=== PATIENT | female | born 1945 | race Caucasian/White ===

== ENCOUNTER 2019-12-26 16:39 | Outpatient (CLI) | payer MEDICARE, SELFPAY ==
[2019-12-26 17:29] LABS: Basophils Percent Auto 0.2 % (0.2-1.2); Eosinophils Absolute Auto 0.1 K/mm3 (0-0.3); Eosinophils Percent Auto 1.1 % (0-4.4); Hematocrit 34.3 % (37.0-47.0); Hemoglobin 10.6 g/dL (12.0-15.0); Immature Granulocyte Absolute 0.01 K/mm3 (0.00-0.031); Immature Granulocyte Percent A 0.2 % (0-0.5); Lymphocytes Absolute Auto 2.07 K/mm3 (0.9-3.2); Lymphocytes Percent Auto 33.4 % (18.3-44.2); Mean Corpuscular HGB Conc 30.9 g/dl (32-36); Mean Corpuscular Hemoglobin 30.6 pg (26-34); Mean Corpuscular Volume 99.1 fl (80-100); Mean Platelet Volume 10.4 fl (7.4-10.4); Monocytes Absolute Auto 0.5 K/mm3 (0.1-0.6); Monocytes Percent Auto 7.3 % (2.6-8.5); Neutrophils Absolute Auto 3.6 K/mm3 (1.3-6.7); Neutrophils Percent Auto 57.8 % (45.5-73.1); Platelet Count Result 326 k/mm3 (150-375); Red Blood Count 3.46 M/mm3 (4.2-5.4); Red Cell Distribution Width 13.5 % (11.5-14.5); White Blood Count 6.2 K/mm3 (4.5-10.0)
[2019-12-26 18:17] LABS: Alanine Aminotransferase 14 U/L (4-35); Albumin Level 3.9 g/dL (3.5-5.1); Alkaline Phosphatase 111 U/L (38-126); Aspartate Amino Transferase 22 U/L (14-36); Bilirubin,Total 0.3 mg/dL (0.2-1.3); Blood Urea Nitrogen 33 mg/dL (7-17); Calcium 9.3 mg/dL (8.4-10.2); Carbon Dioxide 22 mmol/L (22-30); Chloride 105 mmol/L (98-107); Estimated Glomerular Filt Rate 28; Glucose 95 mg/dL (65-105); Iron 57 ug/dL (37-170); Potassium 5.2 mmol/L (3.4-5.0); Sodium 139 mmol/L (137-145)
[2019-12-26 18:26] LABS: Percent Iron Saturation 20 % (20-50)
== END 2019-12-26 16:40 | disposition home or self-care (01) ==
LOC: ANHLAB 16:41
PROVIDERS: PCP Internal Medicine; Visit Provider Internal Medicine
DX: D64.9 Anemia, unspecified (principal); D50.9 Iron deficiency anemia, unspecified; I10 Essential (primary) hypertension; E43 Unspecified severe protein-calorie malnutrition
CPT/HCPCS: 36415; 80053; 82728; 83540; 83550; 85025

== ENCOUNTER 2019-12-27 19:26 | Emergency (ER) | payer MEDICARE, SELFPAY ==
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
[2019-12-27 19:47] VITALS: BP 165/62; PULSE 64; RESP 20; TEMP 37.2; O2SAT 100
== END 2019-12-27 20:01 | disposition home or self-care (01) ==
PROVIDERS: Emergency Provider Nurse Practitioner Family
DX: S61.412A Laceration without foreign body of left hand, initial encounter (principal); W55.03XA Scratched by cat, initial encounter; Z86.718 Personal history of other venous thrombosis and embolism; I10 Essential (primary) hypertension; K21.9 Gastro-esophageal reflux disease without esophagitis
CPT/HCPCS: 99213; G0463

== ENCOUNTER 2020-01-04 15:24 | Outpatient (CLI) | payer MEDICARE, SELFPAY ==
--- NOTE | ~2020-01-04 | US_ITS ---
EXAMINATION: US venous doppler LE EXAM DATE: 01/04/2020 16:05 INDICATION: DVT follow-up. TECHNIQUE: Multiple grayscale, color flow and Doppler images of the lower extremity deep venous syste ms bilaterally were obtained and reviewed. Comparison is made to prior examination from 07/03/2019. FINDINGS: RIGHT SIDE Common femoral: -------- Normal. Profunda femoral: ------- Normal. Femoral: Normal. Popliteal: Normal. Posterior tibial: --------- Normal. Peroneal: Normal. Gastrocnemius: Not visualized. Soleus: Not visualized. Greater saphenous: ----- Normal. Lesser saphenous: ------ Not visualized. Interval reconstitution of previously seen right common femoral, femoral, popliteal DVT. LEFT SIDE Common femoral: -------- Normal. Profunda femoral: ------- Normal. Femoral: Persistent thrombus. Popliteal: Persistent thrombus. Posterior tibial: --------- Normal. Peroneal: Normal. Gastrocnemius: Not visualized. Soleus: Not visualized. Greater saphenous: ----- Normal. Lesser saphenous: ------ Not visualized. Interval reconstitution of left common femoral DVT. IMPRESSION: 1. Positive for persistent left femoral, popliteal DVT. 2. Resolution of previously seen right DVT. Reviewed, dictated and finalized at location B. 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
== END 2020-01-04 15:25 | disposition home or self-care (01) ==
PROVIDERS: PCP Internal Medicine; Visit Provider Internal Medicine
DX: I82.409 Acute embolism and thrombosis of unspecified deep veins of unspecified lower extremity (principal)
CPT/HCPCS: 93970

== ENCOUNTER 2020-04-26 10:05 | Outpatient (CLI) | payer MEDICARE, SELFPAY ==
--- NOTE | ~2020-04-26 | CT_ITS ---
EXAMINATION: CT chest wo con DATE: 04/26/2020 09:58 INDICATION: Lung nodule follow-up TECHNIQUE: Computed tomography (CT) of the chest was performed without intravenous contrast. The dose -length product was 234.01 mGy-cm. Automated exposure control and iterative reconstruction technique were employed. COMPARISON: CT dated 11/13/2018 FINDINGS: No thoracic lymphadenopathy. Heart size normal. There are surgical changes consistent with hiatal hernia repair. There is atherosclerosis. No significant pleural or pericardial effusion. There are cholecystectomy clips. Previously identified right middle lobe nodule not visualized on the current examination. There is lo wer lobe atelectasis. No suspicious pulmonary nodules or masses. Mild thoracic spondylosis. Accentuat ed thoracic kyphosis. IMPRESSION: 1. Interval resolution of right middle lobe nodule compared with prior study. Bibasilar atelectasis. Reviewed, dictated and finalized at location A. IMPRESSION: 1. Interval resolution of right middle lobe nodule compared with prior study. B ibasilar atelectasis.
--- NOTE | ~2020-04-26 | US_ITS ---
EXAMINATION:US venous doppler LE LT INDICATION:Chronic deep venous thrombosis TECHNIQUE: Multiple grayscale, color flow and Doppler images of the right lower extremity deep venous systems were obtained and reviewed. COMPARISON: Comparison to multiple prior studies sequentially, with oldest reviewed study dated 11/18. FINDINGS: There is deep venous thrombosis of the distal aspect of the right femoral vein. The left po pliteal veins demonstrate normal respiratory variation, augmentation and compressibility. Color flow is also seen within the posterior tibial, peroneal, greater saphenous and profunda veins. There is a Dominguez's cyst measuring 2.9 x 1.4 x 1.3 cm. IMPRESSION: 1: Deep venous thrombosis distal aspect of the right femoral vein. Reviewed, dictated and finalized at location A.
[2020-04-26 10:32] LABS: Basophils Percent Auto 0.2 % (0.2-1.2); Eosinophils Absolute Auto 0.1 K/mm3 (0-0.3); Eosinophils Percent Auto 1.9 % (0-4.4); Hemoglobin 11.5 g/dL (12.0-15.0); Immature Granulocyte Absolute 0.01 K/mm3 (0.00-0.031); Immature Granulocyte Percent A 0.2 % (0-0.5); Lymphocytes Absolute Auto 1.56 K/mm3 (0.9-3.2); Lymphocytes Percent Auto 33.2 % (18.3-44.2); Mean Corpuscular HGB Conc 31.9 g/dl (32-36); Mean Corpuscular Hemoglobin 31.1 pg (26-34); Mean Corpuscular Volume 97.3 fl (80-100); Mean Platelet Volume 10.4 fl (7.4-10.4); Monocytes Absolute Auto 0.4 K/mm3 (0.1-0.6); Monocytes Percent Auto 8.3 % (2.6-8.5); Neutrophils Absolute Auto 2.6 K/mm3 (1.3-6.7); Neutrophils Percent Auto 56.2 % (45.5-73.1); Platelet Count Result 263 k/mm3 (150-375); Red Cell Distribution Width 13.2 % (11.5-14.5); White Blood Count 4.7 K/mm3 (4.5-10.0)
[2020-04-26 10:46] LABS: Alanine Aminotransferase 16 U/L (4-35); Albumin Level 3.9 g/dL (3.5-5.1); Alkaline Phosphatase 129 U/L (38-126); Aspartate Amino Transferase 22 U/L (14-36); Bilirubin,Total 0.5 mg/dL (0.2-1.3); Blood Urea Nitrogen 37 mg/dL (7-17); Carbon Dioxide 24 mmol/L (22-30); Chloride 111 mmol/L (98-107); Cholesterol 158 mg/dL (0-200); Estimated Glomerular Filt Rate 28; Glucose 118 mg/dL (65-105); HDL Direct 51 mg/dL; Potassium 4.4 mmol/L (3.4-5.0); Sodium 140 mmol/L (137-145); Triglycerides 92 mg/dL (<150)
[2020-04-26 10:57] LABS: Iron 82 ug/dL (37-170)
[2020-04-26 10:58] LABS: LDL Cholesterol Direct 79 mg/dL
[2020-04-26 11:21] LABS: Percent Iron Saturation 26 % (20-50)
== END 2020-04-26 10:06 | disposition home or self-care (01) ==
PROVIDERS: PCP Internal Medicine; Visit Provider Nurse Practitioner
DX: R91.1 Solitary pulmonary nodule (principal); J98.11 Atelectasis; I82.411 Acute embolism and thrombosis of right femoral vein; E78.2 Mixed hyperlipidemia; D50.9 Iron deficiency anemia, unspecified
CPT/HCPCS: 36415; 71250; 80053; 80061; 83540; 83550; 85025; 93971

== ENCOUNTER 2020-10-13 15:43 | Outpatient (CLI) | payer MEDICARE, SELFPAY ==
[2020-10-13 16:06] LABS: Basophils Percent Auto 0.2 % (0.2-1.2); Eosinophils Absolute Auto 0.1 K/mm3 (0-0.3); Eosinophils Percent Auto 1.7 % (0-4.4); Hemoglobin 11.5 g/dL (12.0-15.0); Immature Granulocyte Absolute 0.01 K/mm3 (0.00-0.031); Immature Granulocyte Percent A 0.2 % (0-0.5); Lymphocytes Absolute Auto 1.99 K/mm3 (0.9-3.2); Lymphocytes Percent Auto 34.7 % (18.3-44.2); Mean Corpuscular HGB Conc 31.9 g/dl (32-36); Mean Corpuscular Hemoglobin 31.5 pg (26-34); Mean Corpuscular Volume 98.6 fl (80-100); Monocytes Absolute Auto 0.4 K/mm3 (0.1-0.6); Monocytes Percent Auto 7.3 % (2.6-8.5); Neutrophils Absolute Auto 3.2 K/mm3 (1.3-6.7); Neutrophils Percent Auto 55.9 % (45.5-73.1); Platelet Count Result 276 k/mm3 (150-375); Red Blood Count 3.65 M/mm3 (4.2-5.4); Red Cell Distribution Width 12.5 % (11.5-14.5); White Blood Count 5.7 K/mm3 (4.5-10.0)
[2020-10-13 16:17] LABS: Alanine Aminotransferase 16 U/L (4-35); Albumin Level 3.7 g/dL (3.5-5.1); Alkaline Phosphatase 95 U/L (38-126); Anion Gap 4 mmol/L (8-16); Aspartate Amino Transferase 24 U/L (14-36); Bilirubin,Total 0.5 mg/dL (0.2-1.3); Blood Urea Nitrogen 39 mg/dL (7-17); Calcium 9.2 mg/dL (8.4-10.2); Carbon Dioxide 28 mmol/L (22-30); Chloride 109 mmol/L (98-107); Cholesterol 177 mg/dL (0-200); Estimated Glomerular Filt Rate 28; Glucose 112 mg/dL (65-105); HDL Direct 50 mg/dL; Potassium 4.7 mmol/L (3.4-5.0); Sodium 141 mmol/L (137-145); Triglycerides 129 mg/dL (<150)
[2020-10-13 16:28] LABS: LDL Cholesterol Direct 89 mg/dL
[2020-10-13 18:06] LABS: Iron 80 ug/dL (37-170)
[2020-10-13 18:16] LABS: Percent Iron Saturation 24 % (20-50)
== END 2020-10-13 15:44 | disposition home or self-care (01) ==
LOC: ANHLAB 15:45
PROVIDERS: PCP Internal Medicine; Visit Provider Nurse Practitioner
DX: D50.9 Iron deficiency anemia, unspecified (principal); E78.2 Mixed hyperlipidemia
CPT/HCPCS: 36415; 80053; 80061; 83540; 83550; 85025

== ENCOUNTER 2020-10-24 12:46 | Outpatient (CLI) | payer MEDICARE, SELFPAY ==
--- NOTE | ~2020-10-24 | US_ITS ---
Corrected Report Wrong visit # Order # associated 10/27/2020 [facility] EXAMINATION:US venous doppler LE BI INDICATION:History of DVT in the left lower extremity TECHNIQUE: Multiple grayscale, color flow and Doppler images of the left lower extremity deep venous systems were obtained and reviewed. COMPARISON:Ultrasound dated 04/26/2020 FINDINGS: The common femoral, superficial femoral veins demonstrate normal respiratory variation, augmentation and compressibility. There is a chronic partially occlusive left popliteal deep venous thrombosis. Color flow is also seen within the posterior tibial, peroneal, greater saphenous and profunda veins. IMPRESSION: 1: Chronic partially occlusive deep venous thrombosis of the left popliteal vein. Reviewed, dictated and finalized at location A. 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
== END 2020-10-24 12:47 | disposition home or self-care (01) ==
PROVIDERS: PCP Internal Medicine; Visit Provider Internal Medicine
DX: I82.532 Chronic embolism and thrombosis of left popliteal vein (principal)
CPT/HCPCS: 93970

== ENCOUNTER 2021-04-07 13:18 | Outpatient (CLI) | payer MEDICARE, SELFPAY ==
[2021-04-07 14:44] LABS: Hemoglobin 12.8 g/dL (12.0-15.0)
[2021-04-07 14:55] LABS: Alanine Aminotransferase 22 U/L (4-35); Albumin Level 3.8 g/dL (3.5-5.1); Alkaline Phosphatase 80 U/L (38-126); Anion Gap 6 mmol/L (8-16); Aspartate Amino Transferase 27 U/L (14-36); Bilirubin,Total 0.4 mg/dL (0.2-1.3); Blood Urea Nitrogen 41 mg/dL (7-17); Calcium 9.1 mg/dL (8.4-10.2); Carbon Dioxide 26 mmol/L (22-30); Chloride 110 mmol/L (98-107); Estimated Glomerular Filt Rate 26; Glucose 118 mg/dL (65-105); Potassium 4.3 mmol/L (3.4-5.0); Sodium 142 mmol/L (137-145)
== END 2021-04-07 13:19 | disposition home or self-care (01) ==
LOC: ANHLAB 13:21
PROVIDERS: PCP Internal Medicine; Visit Provider Internal Medicine
DX: E78.2 Mixed hyperlipidemia (principal); I10 Essential (primary) hypertension; D64.9 Anemia, unspecified
CPT/HCPCS: 36415; 80053; 85014; 85018

== ENCOUNTER 2022-04-27 15:57 | Outpatient (CLI) | payer MEDICARE, SELFPAY ==
[2022-04-27 16:24] LABS: Alanine Aminotransferase 24 U/L (6-35); Albumin Level 3.9 g/dL (3.5-5.1); Alkaline Phosphatase 87 U/L (38-126); Anion Gap 6 mmol/L (8-16); Aspartate Amino Transferase 26 U/L (14-36); Bilirubin,Total 0.4 mg/dL (0.2-1.3); Blood Urea Nitrogen 25 mg/dL (7-17); Calcium 8.7 mg/dL (8.4-10.2); Carbon Dioxide 25 mmol/L (22-30); Chloride 112 mmol/L (98-107); Cholesterol 158 mg/dL (0-200); Estimated Glomerular Filt Rate 31; Glucose 116 mg/dL (65-110); HDL Direct 41 mg/dL; Potassium 3.8 mmol/L (3.4-5.0); Sodium 143 mmol/L (137-145); Triglycerides 130 mg/dL (<150)
[2022-04-27 16:35] LABS: LDL Cholesterol Direct 76 mg/dL
[2022-04-27 16:40] LABS: Iron 87 ug/dL (37-170)
[2022-04-27 16:49] LABS: Percent Iron Saturation 29 % (20-50)
== END 2022-04-27 15:58 | disposition home or self-care (01) ==
LOC: ANHLAB 15:59
PROVIDERS: PCP Internal Medicine; Visit Provider Internal Medicine
DX: E78.5 Hyperlipidemia, unspecified (principal); D50.9 Iron deficiency anemia, unspecified; I50.33 Acute on chronic diastolic (congestive) heart failure; I10 Essential (primary) hypertension
CPT/HCPCS: 36415; 80053; 80061; 83540; 83550

== ENCOUNTER 2022-05-13 14:12 | Outpatient (CLI) | payer MEDICARE, SELFPAY ==
--- NOTE | ~2022-05-13 | XR_ITS ---
XR chest 2V 05/13/2022 14:50 Indication: Shortness of breath Procedure: 2 view chest Comparison: Comparison to multiple prior studies sequentially, with oldest reviewed study dated 11/20. Findings: Cardiomegaly. Right basilar atelectasis/scarring. No focal pneumonia, pleural effusion, bindu ma or pneumothorax. No acute osseous abnormality. Impression: 1: No acute cardiopulmonary disease. Reviewed, dictated and finalized at location A. Impression: 1: No acute cardiopulmonary disease.
[2022-05-13 14:31] LABS: Hemoglobin 12.3 g/dL (12.0-15.0); Mean Corpuscular HGB Conc 31.5 g/dl (32-36); Mean Corpuscular Volume 98.2 fl (80-100); Mean Platelet Volume 9.5 fl (7.4-10.4); Platelet Count Result 469 k/mm3 (150-375); Red Blood Count 3.97 M/mm3 (4.2-5.4); Red Cell Distribution Width 12.7 % (11.5-14.5); White Blood Count 10.6 K/mm3 (4.5-10.0)
== END 2022-05-13 14:13 | disposition home or self-care (01) ==
PROVIDERS: PCP Internal Medicine; Visit Provider Nurse Practitioner
DX: R06.02 Shortness of breath (principal); D50.9 Iron deficiency anemia, unspecified
CPT/HCPCS: 36415; 71046; 85027

== ENCOUNTER 2022-05-28 01:07 | Day surgery (SDC) | payer MEDICARE, SELFPAY ==
[2022-05-24 13:04] VITALS: BMI 36.1
--- NOTE | 2022-05-28 09:36 | PM.IMHP ---
H&P: HPI History of Present Illness Date/Time: 05/28/22 09:36 Chief Complaint: Dysphagia Narrative: this is a 76-year-old white female patient who presents for evaluation dysphagia. 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 In 2018 found to have paraesophageal hiatal hernia this underwent surgical repair. This was complicated by respiratory failure and pneumonia. 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 Since that time patient has had some difficulty swallowing. She states when she eats more solid foods it will catch in the low mid substernal area of the chest. It takes some time to pass through. She states the symptoms appear to be increasing over recent months and for this reason referred for EGD. Patient remains on omeprazole taken daily. 40mg p.o. daily. Occasionally supplemented with famotidine. Xarelto was on hold for endoscopy. Review of Systems Review of Systems: Review of systems noncontributory. [facility] Past Medical History Medical History Screening for breast cancer Screening for colon cancer Screening for osteoporosis Family History Family History Sibling Family history of malignant neoplasm Patient's brother is in good health Family history of diabetes mellitus in first degree relative Patient's sister is Diabetes mellitus, Onset Age: 65 Mother Family history of malignant neoplasm of breast in first degree relative, Onset Age: 65 Patient's mother is Father Patient's father is , Onset Age: 85 Other Hypertension Social History Social History Smoking status: Never smoker Alcohol intake: current Alcohol use details: social Substance use: never Substance use type: does not use Living arrangements: with family Spiritual care concerns: No Meds Home Medications and Allergies Home Medications Medication Instructions Recorded Confirmed Type losartan 100 mg tablet 100 mg PO DAILY #90 tabs 09/12/19 05/24/22 Rx amlodipine 5 mg tablet 5 mg PO DAILY #90 tabs 10/16/20 05/24/22 Rx chlorthalidone 25 mg tablet 37.5 mg PO DAILY 04/15/21 05/24/22 History metoprolol succinate 25 mg 25 mg PO DAILY #90 tabs 10/23/21 05/24/22 Rx tablet,extended release 24 hr omeprazole 40 mg capsule,delayed 40 mg PO DAILY #90 caps 10/23/21 05/24/22 Rx release famotidine 40 mg tablet 40 mg PO DAILY #90 tabs 01/28/22 05/24/22 Rx vit C 250 mg-vit E 90 mg-zinc 40 1 tablet PO BID 05/13/22 05/24/22 History mg-copper 1 fp-tvevcy-vlmama capsule (PreserVision AREDS-2) iron,carbonyl 65 mg-vitamin C 125 1 tablet PO DAILY 05/24/22 05/24/22 History mg tablet,delayed release (Vitron-C) rivaroxaban 20 mg tablet (Xarelto) 20 mg PO QPM 05/24/22 05/24/22 History Allergies Allergy/AdvReac Type Severity Reaction Status Date / Time fentanyl Allergy Severe Nightmare Verified 05/28/22 09:38 Sulfa (Sulfonamide Allergy Severe Difficulty Verified 05/28/22 09:38 Antibiotics) Breathing Exam Narrative: Physical exam reveals patient be alert. Vital signs stable. HEENT exam is unremarkable. Patient is anicteric. Lungs are clear to auscultation and percussion. Heart is without murmur or extra sounds. Abdominal exam bowel sounds present soft nontender with no organomegaly. Digital external rectal exam normal. Assessment and Plan Assessment and plan (1) Dysphagia: Code(s): R13.10 - Dysphagia, unspecified Status: Acute Assessment and Plan: Patient complains of difficulty swallowing. She has a distant history of esophageal web. She has had hiatal hernia repair and a history of esophagea
[2022-05-28 09:42] VITALS: BP 183/67; PULSE 74; RESP 20; TEMP 36.5; O2SAT 100
[2022-05-28] MEDS: LACTATED RINGERS 1,000 ML 150 ML IV CONT (09:51)
--- NOTE | 2022-05-28 10:02 | WPDANESEPPF ---
Anes - Initial Pre Proc Eval Procedure: Operation Date: 05/28/22 10:45 Proposed Procedures p Esophagogastroduodenoscopy - Juvenal Hannah MD Date/Time: 05/28/22 10:02 Surgeon: Juvenal Hannah MD Pre Op Diagnosis: dysphagia Patient Data Age: 76 Gender: F Height: 1.6 m Weight: 93.7 kg Last Vital Signs Temp 36.5 C 05/28/22 09:42 Pulse 74 05/28/22 09:42 Resp 20 05/28/22 09:42 BP 183/67 H 05/28/22 09:42 Pulse Ox 100 05/28/22 09:42 O2 Del Method Room Air 05/28/22 09:42 Allergies Allergy/AdvReac Type Severity Reaction Status Date / Time fentanyl Allergy Severe Nightmare Verified 05/28/22 09:38 Sulfa (Sulfonamide Allergy Severe Difficulty Verified 05/28/22 09:38 Antibiotics) Breathing Home Medications Medication Instructions Recorded Confirmed Type losartan 100 mg tablet 100 mg PO DAILY #90 tabs 09/12/19 05/24/22 Rx amlodipine 5 mg tablet 5 mg PO DAILY #90 tabs 10/16/20 05/24/22 Rx chlorthalidone 25 mg tablet 37.5 mg PO DAILY 04/15/21 05/24/22 History metoprolol succinate 25 mg 25 mg PO DAILY #90 tabs 10/23/21 05/24/22 Rx tablet,extended release 24 hr omeprazole 40 mg capsule,delayed 40 mg PO DAILY #90 caps 10/23/21 05/24/22 Rx release famotidine 40 mg tablet 40 mg PO DAILY #90 tabs 01/28/22 05/24/22 Rx vit C 250 mg-vit E 90 mg-zinc 40 1 tablet PO BID 05/13/22 05/24/22 History mg-copper 1 iv-pqwlnh-jkraqy capsule (PreserVision AREDS-2) iron,carbonyl 65 mg-vitamin C 125 1 tablet PO DAILY 05/24/22 05/24/22 History mg tablet,delayed release (Vitron-C) rivaroxaban 20 mg tablet (Xarelto) 20 mg PO QPM 05/24/22 05/24/22 History Patient hx anesthesia problems: none Family hx anesthesia problems: none Results Review: All pre-operative results and documents have been reviewed as part of the pre-operative evaluation. [facility], [facility] Past Medical History Medical History Chronic atrial fibrillation DVT (deep venous thrombosis) Dysphagia Essential (primary) hypertension Gastroesophageal reflux disease Generalized anxiety disorder Mixed hyperlipidemia Family History Family History Sibling Family history of malignant neoplasm Patient's brother is in good health Family history of diabetes mellitus in first degree relative Patient's sister is Diabetes mellitus, Onset Age: 65 Mother Family history of malignant neoplasm of breast in first degree relative, Onset Age: 65 Patient's mother is Father Patient's father is , Onset Age: 85 Other Hypertension Social History Social History Smoking status: Never smoker Alcohol intake: current Alcohol use details: social Substance use: never Substance use type: does not use Living arrangements: with family Spiritual care concerns: No Anes - Eval Final PreProcedure Day of Procedure 05/28/22 10:02 Patient weight: obese Heart: irregular rhythm Lungs: decreased breath sounds Airway: Mallampati scale class II Neurological: other (alert) Last oral intake: >/= 8 hours ASA classification: III Emergent: no Anesthesia type and monitoring: general GIVS and standard monitoring Results Review: All pre-operative results and documents have been reviewed as part of the pre-operative evaluation. Informed Consent: The patient's anesthetic plan and its attendant risks and benefits were discussed with the patient/family/POA. Questions were solicited and answers provided to the satisfaction of the patient/family/POA.
[2022-05-28 10:53] VITALS: BP 136/43; PULSE 60; RESP 19; O2SAT 100
[2022-05-28 11:03] VITALS: BP 150/63; PULSE 57; RESP 17; O2SAT 100
[2022-05-28 11:13] VITALS: BP 150/63; PULSE 58; RESP 18; O2SAT 100
== END 2022-05-28 11:21 | disposition home or self-care (01) ==
PROVIDERS: PCP Internal Medicine; Visit Provider Internal Medicine Gastroenterology
PROC: 0DJ08ZZ Inspection of Upper Intestinal Tract, Via Natural or Artificial Opening Endoscopic (ICD-10-PCS; CPT 43235; principal; 2022-05-28 10:45)
DX: R13.19 Other dysphagia (principal); K31.84 Gastroparesis; Z79.01 Long term (current) use of anticoagulants; I48.20 Chronic atrial fibrillation, unspecified; Z86.718 Personal history of other venous thrombosis and embolism; R13.10 Dysphagia, unspecified; I10 Essential (primary) hypertension; F41.1 Generalized anxiety disorder; E78.2 Mixed hyperlipidemia; E66.9 Obesity, unspecified; Z68.36 Body mass index [BMI] 36.0-36.9, adult; Z87.19 Personal history of other diseases of the digestive system
CPT/HCPCS: 43235; J2704; J7120

== ENCOUNTER 2022-09-16 00:47 | Day surgery (SDC) | payer MEDICARE, SELFPAY ==
[2022-09-09 08:47] VITALS: BMI 37.4
[2022-09-16 08:19] VITALS: BP 150/74; PULSE 59; RESP 16; TEMP 36.6; O2SAT 100
[2022-09-16] MEDS: LACTATED RINGERS 1,000 ML 150 ML IV CONT (08:24)
--- NOTE | 2022-09-16 08:39 | PM.HPGS ---
History of Present Illness History of Present Illness Consent: Risks, benefits, and alternatives have been discussed and questions answered. Patient agrees to proceed with procedure. Chief complaint: dysphagia Narrative: Toshia Silverio is a 76 year old female Presents for EGD. Patient complains of difficulty swallowing. Food will catch the mid substernal portion the chest. She does feel heartburn and acid reflux. Her past history is significant for anti-reflux surgery in 2019. This was complicated by perforation and fistula formation. She required esophageal stenting for a period of time at tertiary care center in [place]. Since that time she has difficulty swallowing. EGD attempted earlier this year revealed a large amount retained food. She subsequently has been maintained on Reglan 5mg p.o. t.i.d. with meals. She also takes omeprazole 40mg p.o. daily. She does however continue to have acid reflux. Patient presents today for follow-up EGD possible dilatation of the GE junction. Review of Systems Review of Systems: Review of systems noncontributory. [facility] Past Medical History Medical History Chronic atrial fibrillation DVT (deep venous thrombosis) Dysphagia Essential (primary) hypertension Gastroesophageal reflux disease Generalized anxiety disorder Mixed hyperlipidemia Family History Family History Sibling Family history of malignant neoplasm Patient's brother is in good health Family history of diabetes mellitus in first degree relative Patient's sister is Diabetes mellitus, Onset Age: 65 Mother Family history of malignant neoplasm of breast in first degree relative, Onset Age: 65 Patient's mother is Father Patient's father is , Onset Age: 85 Other Hypertension Social History Social History Smoking status: Never smoker Alcohol intake: current Alcohol use details: occasional Substance use: never Substance use type: does not use Living arrangements: with family Spiritual care concerns: No Meds Home Medications and Allergies Home Medications Medication Instructions Recorded Confirmed Type losartan 100 mg tablet 100 mg PO DAILY #90 tabs 09/12/19 09/16/22 Rx amlodipine 5 mg tablet 5 mg PO DAILY #90 tabs 10/16/20 09/16/22 Rx chlorthalidone 25 mg tablet 37.5 mg PO DAILY 04/15/21 09/16/22 History metoprolol succinate 25 mg 25 mg PO DAILY #90 tabs 10/23/21 09/16/22 Rx tablet,extended release 24 hr metoclopramide HCl 5 mg tablet 5 mg PO TIDWMEAL #60 tabs 05/28/22 09/16/22 Rx (Reglan) famotidine 40 mg tablet 40 mg PO DAILY #90 tabs 08/19/22 09/16/22 Rx omeprazole 40 mg capsule,delayed 40 mg PO DAILY #90 caps 08/25/22 09/16/22 Rx release cholecalciferol (vitamin D3) 125 125 mcg PO DAILY 09/09/22 09/16/22 History mcg (5,000 unit) tablet ferrous sulfate 325 mg (65 mg 325 mg PO DAILY 09/09/22 09/16/22 History iron) tablet rivaroxaban 20 mg tablet (Xarelto) 25 mg PO DAILY 09/09/22 09/16/22 History vit A 7,160 unit-C 113 mg-E 100 1 tablet PO BID 09/09/22 09/16/22 History rxsp-iqwl-ufyrdx tablet,delayed rel. Allergies Allergy/AdvReac Type Severity Reaction Status Date / Time fentanyl Allergy Severe Nightmare Verified 09/16/22 08:17 Sulfa (Sulfonamide Allergy Severe Difficulty Verified 09/16/22 08:17 Antibiotics) Breathing Vital Signs Vital Signs - 24 hr 09/16/22 08:19 Temperature 97.8 F Pulse Rate 59 L Respiratory Rate 16 Blood Pressure 150/74 H Pulse Oximetry 100 Oxygen Delivery Room Air Exam Narrative: Physical exam reveals patient to be alert. Vital signs stable. HEENT exam is unremarkable. Patient is anicteric. Lungs are clear to auscultation and percussion. Heart is without murmur or extra s
--- NOTE | 2022-09-16 08:54 | WPDANESEPPF ---
Anes - Initial Pre Proc Eval Procedure: Operation Date: 09/16/22 09:30 Proposed Procedures p Esophagogastroduodenoscopy EGD - Juvenal Hannah MD Date/Time: 09/16/22 08:54 Surgeon: Juvenal Hannah MD Pre Op Diagnosis: dysphagia Patient Data Age: 76 Gender: F Height: 1.57 m Weight: 94.2 kg Last Vital Signs Temp 97.8 F 09/16/22 08:19 Pulse 59 L 09/16/22 08:19 Resp 16 09/16/22 08:19 BP 150/74 H 09/16/22 08:19 Pulse Ox 100 09/16/22 08:19 O2 Del Method Room Air 09/16/22 08:19 Allergies Allergy/AdvReac Type Severity Reaction Status Date / Time fentanyl Allergy Severe Nightmare Verified 09/16/22 08:17 Sulfa (Sulfonamide Allergy Severe Difficulty Verified 09/16/22 08:17 Antibiotics) Breathing Home Medications Medication Instructions Recorded Confirmed Type losartan 100 mg tablet 100 mg PO DAILY #90 tabs 09/12/19 09/16/22 Rx amlodipine 5 mg tablet 5 mg PO DAILY #90 tabs 10/16/20 09/16/22 Rx chlorthalidone 25 mg tablet 37.5 mg PO DAILY 04/15/21 09/16/22 History metoprolol succinate 25 mg 25 mg PO DAILY #90 tabs 10/23/21 09/16/22 Rx tablet,extended release 24 hr metoclopramide HCl 5 mg tablet 5 mg PO TIDWMEAL #60 tabs 05/28/22 09/16/22 Rx (Reglan) famotidine 40 mg tablet 40 mg PO DAILY #90 tabs 08/19/22 09/16/22 Rx omeprazole 40 mg capsule,delayed 40 mg PO DAILY #90 caps 08/25/22 09/16/22 Rx release cholecalciferol (vitamin D3) 125 125 mcg PO DAILY 09/09/22 09/16/22 History mcg (5,000 unit) tablet ferrous sulfate 325 mg (65 mg 325 mg PO DAILY 09/09/22 09/16/22 History iron) tablet rivaroxaban 20 mg tablet (Xarelto) 25 mg PO DAILY 09/09/22 09/16/22 History vit A 7,160 unit-C 113 mg-E 100 1 tablet PO BID 09/09/22 09/16/22 History dibs-bbtj-hzvshf tablet,delayed rel. Patient hx anesthesia problems: none Family hx anesthesia problems: none Results Review: All pre-operative results and documents have been reviewed as part of the pre-operative evaluation. [facility] Past Medical History Medical History Chronic atrial fibrillation DVT (deep venous thrombosis) Dysphagia Essential (primary) hypertension Gastroesophageal reflux disease Generalized anxiety disorder Mixed hyperlipidemia Family History Family History Sibling Family history of malignant neoplasm Patient's brother is in good health Family history of diabetes mellitus in first degree relative Patient's sister is Diabetes mellitus, Onset Age: 65 Mother Family history of malignant neoplasm of breast in first degree relative, Onset Age: 65 Patient's mother is Father Patient's father is , Onset Age: 85 Other Hypertension Social History Social History Smoking status: Never smoker Alcohol intake: current Alcohol use details: occasional Substance use: never Substance use type: does not use Living arrangements: with family Spiritual care concerns: No Anes - Eval Final PreProcedure Day of Procedure 09/16/22 08:54 Patient weight: normal Heart: regular rate and rhythm Lungs: clear to auscultation Airway: Mallampati scale class II Neurological: alert and oriented Last oral intake: >/= 8 hours ASA classification: III Emergent: no Anesthetic plan: proceed Anesthesia type and monitoring: general GIVS and standard monitoring Results Review: All pre-operative results and documents have been reviewed as part of the pre-operative evaluation. Informed Consent: The patient's anesthetic plan and its attendant risks and benefits were discussed with the patient/family/POA. Questions were solicited and answers provided to the satisfaction of the patient/family/POA.
[2022-09-16 09:35] VITALS: BP 139/65; PULSE 68; RESP 20; O2SAT 95
[2022-09-16] MEDS: ONDANSETRON INJ 4 MG/2 ML VIAL IV PUSH (09:43)
[2022-09-16 09:45] VITALS: BP 171/77; PULSE 67; RESP 20; O2SAT 98
[2022-09-16 09:55] VITALS: BP 170/71; PULSE 57; RESP 25; O2SAT 100
[2022-09-16 10:05] VITALS: BP 166/66; PULSE 59; RESP 24; O2SAT 100
== END 2022-09-16 10:27 | disposition home or self-care (01) ==
PROVIDERS: PCP Internal Medicine; Visit Provider Internal Medicine Gastroenterology
PROC: 0DJ08ZZ Inspection of Upper Intestinal Tract, Via Natural or Artificial Opening Endoscopic (ICD-10-PCS; CPT 43235; principal; 2022-09-16 09:30)
DX: R13.10 Dysphagia, unspecified (principal); K31.7 Polyp of stomach and duodenum; K21.9 Gastro-esophageal reflux disease without esophagitis; K31.89 Other diseases of stomach and duodenum; I10 Essential (primary) hypertension; E78.2 Mixed hyperlipidemia; F41.1 Generalized anxiety disorder; I48.20 Chronic atrial fibrillation, unspecified; Z86.718 Personal history of other venous thrombosis and embolism; Z79.01 Long term (current) use of anticoagulants; Z87.19 Personal history of other diseases of the digestive system; Z98.890 Other specified postprocedural states
CPT/HCPCS: 43251; 43249; 88305; C1726; J2405; J2704; J7120

== ENCOUNTER 2022-11-25 11:05 | Outpatient (CLI) | payer MEDICARE, SELFPAY ==
--- NOTE | ~2022-11-25 | XR_ITS ---
XR shoulder RT min 2V DATE: 11/25/2022 11:58 INDICATION: Right mid humerus pain after a fall TECHNIQUE: 4 views, including mid humerus COMPARISON: None FINDINGS: Osteopenia. Normal alignment at the acromioclavicular and glenohumeral joints. There is severe joint space narrowing and some spurring at the right glenohumeral joint consistent wi th severe osteoarthritis. No shoulder fracture, dislocation, periosteal reaction or bone destruction or abnormal soft tissue ca lcification. No fracture or dislocation of the included proximal three quarters of the right humerus IMPRESSION: Severe right glenohumeral osteoarthritis No fracture or dislocation of right shoulder or right humerus to the distal shaft; the very distal hu merus is excluded from examination. Osteopenia Reviewed, dictated and finalized at location L. 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 Osteopenia
[2022-11-25 11:36] LABS: Hematocrit 38.1 % (37.0-47.0); Hemoglobin 11.8 g/dL (12.0-15.0); Mean Corpuscular Hemoglobin 30.5 pg (26-34); Mean Corpuscular Volume 98.4 fl (80-100); Mean Platelet Volume 10.3 fl (7.4-10.4); Platelet Count Result 304 k/mm3 (150-375); Red Blood Count 3.87 M/mm3 (4.2-5.4); Red Cell Distribution Width 13.1 % (11.5-14.5); White Blood Count 7.1 K/mm3 (4.5-10.0)
[2022-11-25 11:56] LABS: Alanine Aminotransferase 25 U/L (6-35); Albumin Level 3.9 g/dL (3.5-5.1); Alkaline Phosphatase 91 U/L (38-126); Anion Gap 6 mmol/L (8-16); Aspartate Amino Transferase 28 U/L (14-36); Bilirubin,Total 0.3 mg/dL (0.2-1.3); Blood Urea Nitrogen 35 mg/dL (7-17); Calcium 8.5 mg/dL (8.4-10.2); Carbon Dioxide 25 mmol/L (22-30); Chloride 110 mmol/L (98-107); Estimated Glomerular Filt Rate 27; Glucose 119 mg/dL (65-110); Phosphorus 3.1 mg/dL (2.5-4.5); Potassium 3.6 mmol/L (3.4-5.0); Sodium 141 mmol/L (137-145)
[2022-11-29 17:52] LABS: Vitamin D 1,25 (OH)2 Total 58 pg/mL (18-72); Vitamin D2 1,25 (OH)2 <8 pg/mL; Vitamin D3 1,25 (OH)2 58 pg/mL
== END 2022-11-25 11:06 | disposition home or self-care (01) ==
PROVIDERS: PCP Internal Medicine; Visit Provider Internal Medicine
DX: M19.011 Primary osteoarthritis, right shoulder (principal); N18.32 Chronic kidney disease, stage 3b; D50.9 Iron deficiency anemia, unspecified; I12.9 Hypertensive chronic kidney disease with stage 1 through stage 4 chronic kidney disease, or unspecified chronic kidney disease; I48.20 Chronic atrial fibrillation, unspecified; M85.821 Other specified disorders of bone density and structure, right upper arm
CPT/HCPCS: 36415; 73030; 80053; 82652; 84100; 84443; 85027

== ENCOUNTER 2022-12-13 13:37 | Outpatient (CLI) | payer MEDICARE, SELFPAY ==
--- NOTE | ~2022-12-13 | DEXA_ITS ---
Bone Density Report Name: MIRYAM MONTALVO Age: 76 Sex: Female Ethnicity: White Date of : 1945 Indication: postmenopausal; screening for osteoporosis; height loss; prior fracture; Referring Provider: AYE ALDANA Study: Bone densitometry was performed. Exam Date: December 13, 2022 Accession number: [id number] Bone Density: Region BMD T-score Z-score Classification AP Spine(L1, L2, L3) 0.920 -0.9 1.6 Normal Femoral Neck (Left) 0.446 -3.6 -1.5 Osteoporosis Total Hip (Left) 0.580 -3.0 -1.1 Osteoporosis Femoral Neck (Right) 0.525 -2.9 -0.8 Osteoporosis Total Hip (Right) 0.640 -2.5 -0.6 Osteoporosis Total Hip Mean 0.610 -2.8 -0.9 Osteoporosis World Health Organization criteria for BMD impression classify patients as: Normal (T-score at or above -1.0), Osteopenia (T-score between -1.0 and -2.5), or Osteoporosis (T-score at or below -2.5). 10-year Fracture Risk: FRAX not reported because: Some T-score for Spine Total or Hip Total or Femoral Neck at or below -2.5 Clinical Information Provided by Patient: Has had a low trauma fracture Has used the following medications: Vitamin D Patient maximum height was 64 Menopause Age: 55 No regular weight bearing exercise Does not regularly consume dairy products Onset of menses at age 13 Number of children 1 Impression: The patient has established osteoporosis, based on the Left Femoral Neck T-score and the existence of a prior fracture. The patient has risk factors, including: previous fracture. Discussion: HIGH RISK OF FRACTURE. BONE DENSITY IS UNDESIRABLY LOW AT ONE OR MORE SKELETAL SITES, CONSISTENT WITH POSTMENOPAUSAL OSTEOPOROSIS. This patient's lowest T-score, in a patient who has previously fractured, meets the World Health Organization's (WHO) criteria for severe osteoporosis. In untreated patients, the risk of osteoporotic fracture increases approximately two-fold for each 1.0 SD decrease in T-score. Low bone density is not the only risk factor for fracture; also consider factors such as patient's age, frailty or poor health, risk of falling, risk of injury, previous osteoporotic fracture, family history of osteoporosis, cigarette smoking, low body weight, etc. Not everyone with low bone mineral density has osteoporosis; osteomalacia and other metabolic bone disorders should also be considered. Patients who have osteoporosis should be evaluated for specific diseases and conditions (secondary causes) that may cause or contribute to bone loss. The [employer] (AACE) and National Osteoporosis Foundation (NOF) recommend pharmacologic intervention for all postmenopausal women whose T-score is in this range. The patient should follow a healthful lifestyle (good nutrition with adequate calcium and vitamin D, and appr
== END 2022-12-13 13:38 | disposition home or self-care (01) ==
LOC: ANHIMG 13:38
PROVIDERS: PCP Internal Medicine; Visit Provider Internal Medicine
DX: Z13.820 Encounter for screening for osteoporosis (principal); Z78.0 Asymptomatic menopausal state; M81.0 Age-related osteoporosis without current pathological fracture
CPT/HCPCS: 77080